=== PATIENT | male | born 1985 | race Caucasian/White ===

== ENCOUNTER 2018-01-09 08:43 | Emergency (ER) | payer OTHER, BC ==
--- NOTE | 2018-01-09 09:45 | ER Document Report ---
ED GI Bleed / Rectal Pain - General Mode of Arrival: Ambulatory Information source: Patient TRAVEL OUTSIDE OF THE U.S. IN LAST 30 DAYS: No - General Chief Complaint: Rectal Pain Stated Complaint: RECTAL PAIN Time Seen by Provider: 01/09/18 09:25 Notes: Patient is a 33 year old male with IBS presents to the emergency department complaining of rectal pain onset yesterday morning around 0400. Patient states the pain is exacerbated with movement, coughing or bowel movements. He reports going to [facility] yesterday and being discharged with a diagnosis of constipation and directed to stop taking Imodium and to take MiraLax after having a rectal exam and xrays performed. Patient states he took MiraLAX yesterday and had several bowel movements which did not change his pain. Patient denies rectal bleeding or any foreign objects in the rectum. Patient states he takes Imodium twice daily for IBS. (RAHEL REINA) - Related Data Allergies/Adverse Reactions: No Known Allergies Allergy (Verified 01/09/18 08:44) Past Medical History - General Information source: Patient - Social History Smoking Status: Current Every Day Smoker Cigarette use (# per day): Yes - 1 PPD Chew tobacco use (# tins/day): No Frequency of alcohol use: Social Drug Abuse: None Family History: Reviewed & Not Pertinent Patient has suicidal ideation: No Patient has homicidal ideation: No Past Surgical History: Reports: Hx Orthopedic Surgery - Immunizations Hx Diphtheria, Pertussis, Tetanus Vaccination: Yes Review of Systems - Review of Systems Constitutional: No symptoms reported EENT: No symptoms reported Cardiovascular: No symptoms reported Respiratory: No symptoms reported Gastrointestinal: See HPI. denies: Rectal bleeding Genitourinary: No symptoms reported Male Genitourinary: No symptoms reported Musculoskeletal: No symptoms reported Skin: No symptoms reported Hematologic/Lymphatic: No symptoms reported Neurological/Psychological: No symptoms reported -: Yes All other systems reviewed and negative Physical Exam - Vital signs Vitals: Temp Pulse Resp BP Pulse Ox 98.1 F 99 16 138/73 H 97 01/09/18 08:50 01/09/18 08:50 01/09/18 08:50 01/09/18 08:50 01/09/18 08:50 - Notes Notes: GENERAL: Alert, interacts well. No acute distress. HEAD: Normocephalic, atraumatic. EYES: Appear normal. Pupils equal, round, and reactive to light. ENT: Moist mucus membranes, tongue midline. NECK: Full range of motion. Supple. Trachea midline. LUNGS: Clear to auscultation bilaterally, no wheezes, rales, or rhonchi. No respiratory distress. HEART: Regular rate and rhythm. No murmurs, gallops, or rubs. ABDOMEN: Soft, non-tender. Non-distended. Normal bowel sounds. EXTREMITIES: Moves all 4 extremities spontaneously. Normal strength. No edema. NEUROLOGICAL: Alert and oriented x3. Normal speech. PSYCH: Normal affect, normal mood. SKIN: Warm, dry, normal turgor. No rashes or lesions noted. RECTAL: Exquisite tenderness to at the 12 o'clock position in the knee to chest position, nontender in the other 3 quadrants. No external fissures or hemorrhoids. (RAHEL REINA) Course - Re-evaluation Re-evalutation: 01/09/18 09:54 Evaluation shows the patient most likely has an internal anal fissure. He states he is leaving tomorrow to drive to [place] and will be there for approximately 8 days. Patient is also asking for an albuterol inhaler. (LION JIMÉNEZ) - Vital Signs Vital signs: Temp Pulse Resp BP Pulse Ox 98.1 F 99 16 138/73 H 97 01/09/18 08:50 01/09/18 08:50 01/09/18 08:50 01/09/18 08:50 01/09/18 08:50 Discharge - Discharge Clinical Impression: Anal fissure Condition: Stable Disposition: HOME, SELF-CARE Additional Instructions: Anal Fissure: You have a split in the tissues of the anus, called an anal fissure. This may be due to constipation, or chronic anal irritation. The fissure causes pain during bowel movements. It may bleed when you pass stool. Treat the fissure with warm sitz baths three or four times a day. Clean the anal area carefully -- special cleansing pads (Tucks) may be helpful. Sometimes prescription suppositories are helpful in reducing pain and inflammation. A stool softener (such as Metamucil) will make bowel movements less traumatic. Eat a diet high in fiber (fruits, whole grains), and drink plenty of water. See your doctor if there is profuse bleeding, increasing pain, an enlarging mass, or fever -- or if the symptoms do not resolve after treatment. Your history and physical exam suggest you have an internal anal fissure. The treatment for this would be lidocaine ointment 4% for pain relief. You can buy this [id number] now. You will also receive a prescription for nitroglycerin ointment. Apply one inch of the nitroglycerin cream into the painful anal region once every 12 hours until you can get the ointment prescription filled. Apply a small amount of the lidocaine ointment into the painful area every 3-4 hours as needed for pain. Reduce the amount of Imodium you take to where you just have very soft bowel movements. Be sure to drink plenty of fluids. Follow-up with [facility] for recheck and anoscopic exam. Prescriptions: Albuterol Sulfate [Proair HFA] 1 - 2 puff IH Q4 PRN #1 inhaler PRN Reason: Nitroglycerin [Nitro-Bid 2% Ointment 30 gm] 0.[address] Q12 #30 gm Referrals: [facility] [Provider Group] - Follow up in 1 week Scribe Attestation: 01/09/18 10:04 I personally performed the services described in the documentation, reviewed and edited the documentation which was dictated to the scribe in my presence, and it accurately records my words and actions. (LION JIMÉNEZ)
[2018-01-09] MEDS ORDERED: NITROGLYCERIN 2% OINTMENT 1 GM PACKET TP ONE (10:04)
[2018-01-09 10:44] VITALS: BP 131/90
== END 2018-01-09 10:31 | disposition home or self-care (01) ==
LOC: ER 08:43
DX: K60.2 Anal fissure, unspecified (principal); K62.89 Other specified diseases of anus and rectum; F17.210 Nicotine dependence, cigarettes, uncomplicated
CPT/HCPCS: 99283

== ENCOUNTER 2018-05-14 13:33 | Emergency (ER) | payer BC, OTHER ==
[2018-05-14 13:40] VITALS: BP 132/80
[2018-05-14] MEDS ORDERED: LIDOCAINE 1% INJ-PF (10 MG/ML) 30 ML SDV INJ ONE (14:00)
--- NOTE | 2018-05-14 14:02 | ER Document Report ---
ED Medical Screen (RME) - General Chief Complaint: Abscess Stated Complaint: ABSCESS/BUTTOCKS Time Seen by Provider: 05/14/18 14:00 Mode of Arrival: Ambulatory Information source: Patient TRAVEL OUTSIDE OF THE U.S. IN LAST 30 DAYS: No - HPI Patient complains to provider of: abscess- buttocks Onset: Other - pt .with abscess on buttocks which has recently started draining - Related Data Allergies/Adverse Reactions: No Known Allergies Allergy (Verified 05/14/18 13:33) Past Medical History Renal/ Medical History: Denies: Hx Peritoneal Dialysis Past Surgical History: Reports: Hx Orthopedic Surgery - Immunizations Hx Diphtheria, Pertussis, Tetanus Vaccination: Yes Physical Exam - Vital signs Vitals: Temp Pulse Resp BP Pulse Ox 98.5 F 82 16 132/80 H 98 05/14/18 13:36 05/14/18 13:36 05/14/18 13:36 05/14/18 13:36 05/14/18 13:36 Course - Vital Signs Vital signs: Temp Pulse Resp BP Pulse Ox 98.5 F 82 16 132/80 H 98 05/14/18 13:36 05/14/18 13:36 05/14/18 13:36 05/14/18 13:36 05/14/18 13:36
--- NOTE | 2018-05-14 15:00 | ER Document Report ---
ED General - General Chief Complaint: Abscess Stated Complaint: ABSCESS/BUTTOCKS Time Seen by Provider: 05/14/18 14:00 Mode of Arrival: Ambulatory Notes: Patient is a 33-year-old male who presents to the emergency department with a chief complaint of an abscess in his anal area. He states that the past couple days, the abscess was hurting, and today it started draining. He has had this abscess since December. He was seen in the emergency department, and was told he had a fissure. 3 days after the visit to the emergency department, the abscess had opened up and he noticed pus. He has not seen his primary care doctor for this visit. He denies fevers, chills, or any constitutional symptoms at this time. He has a history of IBS. He is not a diabetic. TRAVEL OUTSIDE OF THE U.S. IN LAST 30 DAYS: No - Related Data Allergies/Adverse Reactions: No Known Allergies Allergy (Verified 05/14/18 14:09) Past Medical History - General Information source: Patient - Social History Smoking Status: Current Every Day Smoker Chew tobacco use (# tins/day): No Frequency of alcohol use: Social Drug Abuse: None Family History: Reviewed & Not Pertinent Patient has suicidal ideation: No Patient has homicidal ideation: No Renal/ Medical History: Denies: Hx Peritoneal Dialysis Past Surgical History: Reports: Hx Orthopedic Surgery - Immunizations Hx Diphtheria, Pertussis, Tetanus Vaccination: Yes Review of Systems - Review of Systems Notes: REVIEW OF SYSTEMS: CONSTITUTIONAL : Denies recent illness. Denies recent unintentional weight loss. Denies fever, chills, or sweats. EENT: Denies eye, ear, throat, or mouth pain, discharge, or symptoms. Denies nasal or sinus congestion. CARDIOVASCULAR: Denies chest pain. RESPIRATORY: Denies shortness of breath, cough, congestion, difficulty breathing , or wheezing. GASTROINTESTINAL: Denies nausea, vomiting, and diarrhea. Denies abdominal pain. Denies constipation. GENITOURINARY: Denies difficulty urinating, burning, blood in urine, urgency or frequency. MUSCULOSKELETAL: Denies neck and back pain. Denies joint pain or swelling. SKIN: See HPI HEMATOLOGIC : Denies easy bruising or bleeding. LYMPHATIC: Denies swollen, painful, enlarged glands. NEUROLOGICAL: Denies no numbness or tingling denies weakness. Denies headache. Denies altered mental status. Denies alteration in speech. PSYCHIATRIC: Denies stress, anxiety, alteration in sleep patterns, or depression. All other systems reviewed and negative. Physical Exam - Vital signs Vitals: Temp Pulse Resp BP Pulse Ox 98.5 F 82 16 132/80 H 98 05/14/18 13:36 05/14/18 13:36 05/14/18 13:36 05/14/18 13:36 05/14/18 13:36 - Notes Notes: PHYSICAL EXAMINATION: GENERAL: Appears well, healthy, well-nourished, no acute distress. HEAD: Normocephalic, atraumatic. EYES: PERRL, conjunctiva normal, all extraocular movements intact, sclera nonicteric ENT: Moist mucous membranes. NECK: Supple, no noticeable swelling, redness, rash. Normal range of motion. LUNGS: Equal breath sounds bilaterally and clear to auscultation. No wheezes rales or rhonchi. CARDIOVASCULAR: S1-S2, regular rate, regular rhythm. Radial pulses 2+, normal. ABDOMEN: Normoactive bowel sounds. Soft, nontender, no guarding, no rebound tenderness, and no masses palpated. EXTREMITIES: Normal strength and range of motion, no pitting or edema. No cyanosis. NEUROLOGICAL: Moves all extremities upon command. Strength 5/5 in all extremities. PSYCH: Normal mood, normal affect. SKIN: Warm, dry. No rash, lesions, ulcerations noted. Normal skin turgor. RECTAL: Tenderness upon palpation to left anal area and around 7:00. Purulent drainage to area of pain. Course - Re-evaluation Re-evalutation: 05/14/18 15:02 I have concerns for a perirectal abscess. He actually had about 5 mils of drainage, that I was able to extract during my assessment. No cellulitis noted. I have spoke with Dr. Gagnon in regards to this case. He will come to see the patient. Last time the patient ate was around 9:00 this morning. 05/14/18 15:07 Dr. Gagnon was at bedside to evaluate the patient. He states that the patient did not have much to drain from his abscess. His recommendations are to send him home on antibiotics and return precautions and return to the surgical clinic in 3-4 days. Verbal discharge instructions were given to the patient. He verbalized understanding. He is stable for discharge - Vital Signs Vital signs: Temp Pulse Resp BP Pulse Ox 98.5 F 82 16 132/80 H 98 05/14/18 13:36 05/14/18 13:36 05/14/18 13:36 05/14/18 13:36 05/14/18 13:36 Discharge - Discharge Clinical Impression: Perianal abscess Condition: Stable Disposition: HOME, SELF-CARE Additional Instructions: You were seen for an abscess that drained on its own. Please clean this area with soap and water twice daily. 2-3 times a day have a sitz bath to help with pain in the area. Please see the surgical outpatient clinic in 3-4 days. You have been prescribed antibiotics. Please take them until they are all gone. Please return if you develop fever, vomiting, the pain at the site worsens, you notice spreading redness from the area, or you have any other symptoms that are concerning to you. Prescriptions: Sulfamethoxazole/Trimethoprim [Bactrim Ds Tablet] 1 each PO BID 7 Days #14 tablet Referrals: ZAK DIXON MD [CNOY POTTER] - 05/17/18
[2018-05-14] MEDS ORDERED: HYDROCODONE/ACETAMINOPHEN 5-325 MG (6 TAB/ER DISP) PO PRN (15:21)
--- NOTE | 2018-05-14 16:14 | PDOC CONSULTATION ---
Consultation Consult Date: 05/14/18 Consult reason:: rectal abscess History of Present Illness Admission Date/PCP: 05/14/18 Patient complains of: rectal pains History of Present Illness: MAR BENAVIDES is a 33 year old male c/o rectal pains x 48 hrs. 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 He was seen here in December and told has an anal fissure. Rectal area drained on its own 3 days later but did not go back to ED. No fever/chills Past Surgical History Past Surgical History: Reports: Orthopedic Surgery Social History Smoking Status: Current Every Day Smoker Family History Family History: Reviewed & Not Pertinent Parental Family History Reviewed: Yes Children Family History Reviewed: No Sibling(s) Family History Reviewed.: No Medication/Allergy Home Medications: Sulfamethoxazole/Trimethoprim [Bactrim Ds Tablet] 1 each PO BID 7 Days #14 tablet 05/14/18 Allergies/Adverse Reactions: No Known Allergies Allergy (Verified 05/14/18 14:09) Review of Systems Constitutional: PRESENT: as per HPI Eyes: PRESENT: other - no visual/hearing changes Cardiovascular: PRESENT: other - no chest pains/cough Gastrointestinal: PRESENT: other - rectal pains Genitourinary: PRESENT: other - no dysuria Neurological: PRESENT: other - no seizures Physical Exam Vital Signs: Temp Pulse Resp BP Pulse Ox 98.5 F 82 16 132/80 H 98 05/14/18 13:36 05/14/18 13:36 05/14/18 13:36 05/14/18 13:36 05/14/18 13:36 Intake & Output 05/13/18 05/14/18 05/15/18 06:59 06:59 06:59 Weight 77 kg General appearance: PRESENT: no acute distress Head exam: PRESENT: atraumatic Eye exam: PRESENT: conjunctiva pink Mouth exam: PRESENT: moist Neck exam: PRESENT: full ROM Respiratory exam: PRESENT: clear to auscultation maxime Cardiovascular exam: PRESENT: RRR Pulses: PRESENT: normal radial pulses Vascular exam: PRESENT: normal capillary refill GI/Abdominal exam: PRESENT: soft Rectal exam: PRESENT: other - Good sphincteric tone Has a small nodule at the anorectal area post location Has tenderness on posterior area but no obvious abscess cavity that can be drained at this time. Extremities exam: PRESENT: full ROM Musculoskeletal exam: PRESENT: ambulatory Neurological exam: PRESENT: alert, oriented to person, oriented to place, oriented to time, oriented to situation Psychiatric exam: PRESENT: appropriate affect Skin exam: PRESENT: normal color, warm Assessment & Plan - Time Time Spent: 30 to 50 Minutes - Plan Summary Plan Summary: D/W CLASSIFICATION CASE MANAGER and patient. Likely had an abscess that 's been drained. Give po antibiotics and start Hot Sitz baths. If pains really gets worse and/or develops fever then come back to ED. Otherwise can be followed in the surgical clinic later this week or at the [facility].
== END 2018-05-14 15:28 | disposition home or self-care (01) ==
LOC: ER 13:33
DX: K61.0 Anal abscess (principal); F17.200 Nicotine dependence, unspecified, uncomplicated
CPT/HCPCS: 99284; A6266; J3490

== ENCOUNTER 2018-06-09 09:07 | Day surgery (SDC) | payer BC, OTHER ==
[~2018-06-09 09:07] MED LIST: CEFAZOLIN 1 GM/D5W RTU 1 GM/50 ML RTUPB IV PRN; LACTATED RINGERS 1000 ML IV PRN; LIDOCAINE 0.5% INJ-PF (5 MG/ML) 50 ML SDV SUBCUT PRN
[2018-06-09] MEDS ORDERED: CEFAZOLIN 1 GM/D5W RTU 1 GM/50 ML RTUPB IV ONE (09:19)
[2018-06-09 09:48] LABS: HEMATOCRIT 43.1 % (37.9-51.0); HEMOGLOBIN 14.9 g/dL (13.5-17.0); MEAN CORPUSCULAR HEMOGLOBIN 32.5 pg (27.0-33.4); MEAN CORPUSCULAR HGB CONC 34.6 g/dL (32.0-36.0); MEAN CORPUSCULAR VOLUME 94 fl (80-97); PLATELET COUNT 226 10^3/uL (150-450); RED BLOOD COUNT 4.58 10^6/uL (4.35-5.55); RED CELL DISTRIBUTION WIDTH 13.8 % (11.5-14.0); WHITE BLOOD COUNT 5.4 10^3/uL (4.0-10.5)
[2018-06-09] MEDS ORDERED: DIPHENHYDRAMINE HCL 50 MG/ML VIAL IV PRN (10:11)
[2018-06-09] MEDS ORDERED: MEPERIDINE HCL/PF INJ 25 MG/1 ML DISP.SYRIN IV PRN (10:11)
[2018-06-09] MEDS ORDERED: OXYCODONE-ACETAMINOPHEN 5-325 MG TABLET PO PRN ×3 (10:11→11:19)
[2018-06-09] MEDS ORDERED: FENTANYL CITRATE INJ/PF 100 MCG/2 ML AMPUL IV PRN ×3 (10:11)
[2018-06-09] MEDS ORDERED: MORPHINE SULFATE 10 MG/ML INJ IV PRN (10:11)
[2018-06-09] MEDS ORDERED: PROMETHAZINE HCL INJ 25 MG/1 ML VIAL IV PRN ×2 (10:11)
[2018-06-09 10:13] LABS: ANION GAP 9 (5-19); BLOOD UREA NITROGEN 8 mg/dL (7-20); CALCIUM 9.6 mg/dL (8.4-10.2); CARBON DIOXIDE 26 mmol/L (22-30); CHLORIDE 109 mmol/L (98-107); GLUCOSE 91 mg/dL (75-110); POTASSIUM 4.7 mmol/L (3.6-5.0); SODIUM 144.1 mmol/L (137-145)
[2018-06-09] MEDS ORDERED: PROPOFOL INJ 200 MG/20 ML VIAL IV ONE (10:17)
[2018-06-09] MEDS ORDERED: BUPIVACAINE HCL 0.5%-EPI 1:200000 INJ/PF 30 ML VIAL ONE (10:19)
[2018-06-09] MEDS ORDERED: LIDOCAINE 2% JELLY 30 ML TUBE ONE (10:19)
[2018-06-09] MEDS ORDERED: PROMETHAZINE HCL INJ 25 MG/1 ML VIAL ONE (10:19)
[2018-06-09] MEDS ORDERED: LIDOCAINE 2% INJ-PF (20 MG/ML) 10 ML AMPUL ONE (10:19)
[2018-06-09] MEDS ORDERED: FENTANYL CITRATE INJ/PF 100 MCG/2 ML AMPUL ONE (10:19)
[2018-06-09] MEDS ORDERED: DEXAMETHASONE SOD PHOSPHATE INJ 4 MG/1 ML VIAL ONE ×2 (10:20→10:26)
[2018-06-09] MEDS ORDERED: ONDANSETRON HCL INJ/PF 4 MG/2 ML SDV ONE (10:20)
[2018-06-09] MEDS ORDERED: MIDAZOLAM 2 MG/2 ML INJ ONE (10:20)
[2018-06-09] MEDS ORDERED: ACETAMINOPHEN 1,000 MG/100 ML RTUPB IV ONE (10:20)
[2018-06-09] MEDS ORDERED: METHYLENE BLUE 50 MG/10 ML AMPULE ONE (10:51)
--- NOTE | 2018-06-09 11:22 | Brief Operative Note ---
BRIEF OPERATIVE REPORT DATE OF SURGERY: 06/09/18 TIME OF SURGERY: 11:00 PREOPERATIVE DIAGNOSIS: perirectal fistula POSTOPERATIVE DIAGNOSIS: perirectal fistula SURGEON: YEFRI PAUL 1ST CROTCH PIECE BASTER: GRAYSON ANTONIO FINDINGS: extrsphincteric fistual COMPLICATIONS: none ESTIMATED BLOOD LOSS: 3 TISSUE REMOVED OR ALTERED: none TECHNICAL PROCEDURE: see dictation
[2018-06-09] MEDS: FENTANYL CITRATE INJ/PF 100 MCG/2 ML AMPUL ONE ×2 (11:42→11:50)
[2018-06-09] MEDS ORDERED: OXYCODONE-ACETAMINOPHEN 5-325 MG TABLET ONE (12:41)
--- NOTE | 2018-06-09 12:42 | EKG REPORT ---
SEVERITY:- OTHERWISE NORMAL ECG - SINUS RHYTHM LEFT AXIS DEVIATION : Confirmed by: Jaret Rock MD 09-Jun-2018 12:42:06
[2018-06-09] MEDS ORDERED: KETOROLAC TROMETHAMINE 60 MG/2 ML SDV ONE (12:52)
[2018-06-09 14:28] VITALS: BP 126/69
--- NOTE | 2018-06-10 07:42 | OPERATIVE REPORT E ---
Operative Report NAME: MAR BENAVIDES : 1985 AGE: 33Y DATE OF SURGERY: 06/09/2018 ROOM: PREOPERATIVE DIAGNOSIS: Perirectal fistula. POSTOPERATIVE DIAGNOSIS: Perirectal fistula. OPERATIVE PROCEDURE: Exam under anesthesia and fistulotomy with Seton placement. SURGEON: YEFRI PAUL M.D. 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 PROCEDURE: The patient was brought to the operating room, awake, alert, in stable condition, placed on the operating table in supine position, induced under general anesthesia and intubated. He was then placed in a high lithotomy position. The perineum was prepped and draped in the usual sterile fashion for the procedure. The fistula was evident at the 7 o'clock position on the rectum. Using a fine probe, we gained access to the fistula and we noted some pus coming from it. I then infiltrated methylene blue dye saline. Once this was completed, I used the anoscope and examined the rectum and it appeared to be normal without any evidence of hemorrhoids or any other mucosal lesions. However, there was a punctate midline spot directly into it following Goodsall's rule. It was a direct course right into the posterior midline portion of the rectum. We placed the probe into the rectum and began our division of the mucosal tissue over the fistula, however, noted the external sphincter was quite evident and therefore I elected not to transect the external sphincter. I therefore used a vessel loop and passed it around the sphincter and tied it to itself as a Seton. This was left in place and will be tied serially on return visits to the clinic. Hemostasis was obtained with Bovie cautery, and after good hemostasis, a sterile dressing was applied, which completed the procedure. Estimated blood loss was less than 3 mL. Sponge and needle counts were correct x2. The patient was transferred back to recovery in stable condition. DICTATING PHYSICIAN: YEFRI PAUL M.D. [id number] PHY#: [id number] ID: [id number] JOB#: [id number] ACCT: [id number] cc:YEFRI PAUL M.D. >
== END 2018-06-09 14:00 | disposition home or self-care (01) ==
LOC: OROUT 09:07
PROVIDERS: ATTEND Surgery
DX: K60.5 Anorectal fistula (principal); K58.9 Irritable bowel syndrome, unspecified; F17.210 Nicotine dependence, cigarettes, uncomplicated
CPT/HCPCS: 36415; 85027; 80048; 93005; 93010; 46020; J2250; J3490 ×2; J0690; J1100; J1885; J3010; J2550; J2405; J2704; J0131; Q9968; 902

== ENCOUNTER 2018-08-08 09:14 | Day surgery (SDC) | payer OTHER, BC ==
--- NOTE | 2018-08-08 10:05 | ER Document Report ---
ED General - General Chief Complaint: Abscess Stated Complaint: POSSIBLE ABSCESS Time Seen by Provider: 08/08/18 09:31 TRAVEL OUTSIDE OF THE [place]. IN LAST 30 DAYS: No - HPI Patient complains to provider of: Rectal abscess Notes: Patient with a history of IBD with recent perirectal fistula surgery performed in May by Dr. Gonzalez coming in for possible abscess states pain in the rectal area ongoing for the last 48-72 hours. Denies any fevers chills nausea vomiting diarrhea states pain with a bowel movement. Patient otherwise is resting comfortably upon my evaluation. No other complaints - Related Data Allergies/Adverse Reactions: No Known Allergies Allergy (Verified 06/09/18 09:17) Past Medical History - Social History Smoking Status: Current Every Day Smoker Family History: Reviewed & Not Pertinent Patient has suicidal ideation: No Patient has homicidal ideation: No - Past Medical History Cardiac Medical History: Denies: Hx Coronary Artery Disease, Hx Heart Attack, Hx Hypertension Pulmonary Medical History: Reports: Hx Pneumonia Denies: Hx Asthma, Hx Bronchitis, Hx COPD Neurological Medical History: Denies: Hx Cerebrovascular Accident, Hx Seizures Renal/ Medical History: Denies: Hx Peritoneal Dialysis Musculoskeletal Medical History: Denies Hx Arthritis Past Surgical History: Reports: Hx Orthopedic Surgery - Immunizations Hx Diphtheria, Pertussis, Tetanus Vaccination: Yes Review of Systems - Review of Systems Constitutional: No symptoms reported EENT: No symptoms reported Cardiovascular: No symptoms reported Respiratory: No symptoms reported Gastrointestinal: No symptoms reported Genitourinary: No symptoms reported Male Genitourinary: No symptoms reported Musculoskeletal: No symptoms reported Skin: Other - Rectal abscess Hematologic/Lymphatic: No symptoms reported Neurological/Psychological: No symptoms reported Physical Exam - Vital signs Vitals: Temp Pulse Resp BP Pulse Ox 97.8 F 76 14 141/75 H 96 08/08/18 09:18 08/08/18 09:18 08/08/18 09:18 08/08/18 09:18 08/08/18 09:18 Interpretation: Normal - General General appearance: Appears well, Alert - HEENT Head: Normocephalic, Atraumatic Eyes: Normal Pupils: PERRL - Respiratory Respiratory status: No respiratory distress Chest status: Nontender Breath sounds: Normal Chest palpation: Normal - Cardiovascular Rhythm: Regular Heart sounds: Normal auscultation Murmur: No - Abdominal Inspection: Normal Distension: No distension Bowel sounds: Normal Tenderness: Nontender Organomegaly: No organomegaly - Rectal Notes: Examination of the rectum reveals swelling tenderness approximately 7:00 to 8 o'clock position rated bedside ultrasound showing fluid collection - Back Back: Normal, Nontender - Extremities General upper extremity: Normal inspection, Nontender, Normal color, Normal ROM, Normal temperature General lower extremity: Normal inspection, Nontender, Normal color, Normal ROM, Normal temperature, Normal weight bearing. No: Wanda's sign - Neurological Neuro grossly intact: Yes Cognition: Normal Orientation: AAOx4 [place] Coma Scale Eye Opening: Spontaneous [place] Coma Scale Verbal: Oriented [place] Coma Scale Motor: Obeys Commands [place] Coma Scale Total: 15 Speech: Normal Motor strength normal: LUE, RUE, LLE, RLE Sensory: Normal - Psychological Associated symptoms: Normal affect, Normal mood - Skin Skin Temperature: Warm Skin Moisture: Dry Skin Color: Normal Course - Re-evaluation Re-evalutation: 08/08/18 10:04 Patient with history of IBD chronic fissure formation now looks to have a possible abscess because the recent instrumentation surgery performed by her team will consult with them for further evaluation and management 08/08/18 10:25 Dr. Horowitz requesting antibiotics and IV fluids. Patient will remain n.p.o. Patient states last meal was at 730. Patient will be moved to room 7 currently waiting for surgical evaluation. Patient has been updated. Unfortunate this time Dr. Horowitz is in surgery otherwise patient is stable 08/08/18 10:53 Surgery will take patient to the OR - Vital Signs Vital signs: Temp Pulse Resp BP Pulse Ox 97.6 F 62 16 122/75 98 08/08/18 16:25 08/08/18 16:25 08/08/18 16:25 08/08/18 16:25 08/08/18 16:25 - Laboratory Result Diagrams: 08/08/18 10:37 08/08/18 10:37 Laboratory results interpreted by me: 08/08/18 10:37 RDW 14.4 H Discharge - Discharge Clinical Impression: Perirectal fistula, Perirectal abscess, History of inflammatory bowel disease Condition: Good Disposition: ADMITTED OBSERVATION Admitting Provider: Surgicalist - Carlos Manuel Unit Admitted: OR
[2018-08-08] MEDS ORDERED: RINGERS SOLUTION,LACTATED 1,000 ML IV ONE ×2 (10:15)
[2018-08-08] MEDS ORDERED: AMPICILLIN SOD/SULBACTAM 3 GM VIAL IV ONE (10:15)
[2018-08-08 10:58] LABS: ABSOLUTE BASOPHILS # (AUTO) 0.1 10^3/uL (0.0-0.2); ABSOLUTE EOSINOPHILS # (AUTO) 0.1 10^3/uL (0.0-0.6); ABSOLUTE MONOCYTES (AUTO) 0.3 10^3/uL (0.1-1.4); ABSOLUTE NEUT (AUTO) 2.3 10^3/uL (1.7-8.2); BASOPHILS % (AUTO) 1.5 % (0-2); EOSINOPHILS % (AUTO) 1.8 % (0-6); HEMATOCRIT 42.1 % (37.9-51.0); HEMOGLOBIN 14.7 g/dL (13.5-17.0); LYMPHOCYTES % (AUTO) 41.3 % (13-45); MEAN CORPUSCULAR HEMOGLOBIN 32.5 pg (27.0-33.4); MEAN CORPUSCULAR VOLUME 93 fl (80-97); MONOCYTES % (AUTO) 6.7 % (3-13); PLATELET COUNT 233 10^3/uL (150-450); RED BLOOD COUNT 4.53 10^6/uL (4.35-5.55); RED CELL DISTRIBUTION WIDTH 14.4 % (11.5-14.0); SEGMENTED NEUTROPHILS % (AUTO) 48.7 % (42-78); TOTAL CELLS COUNTED % (AUTO) 100 %; WHITE BLOOD COUNT 4.7 10^3/uL (4.0-10.5)
[2018-08-08] MEDS ORDERED: RINGERS SOLUTION,LACTATED 1,000 ML IV PRN (10:59)
--- NOTE | 2018-08-08 11:07 | PDOC H&P ---
History of Present Illness Patient complains of: Anal pain History of Present Illness: MAR BENAVIDES is a 33 year old male Seen in the emergency department, after arriving via ground rescue complaining of persisting anal pain. Patient is a month status post examination under anesthesia, drainage of perianal abscess, fistulotomy, with seton placement by Dr. Mohsen Gonzalez. The seton fell out at the 2-week point and the patient did well until about a week and a half ago he started having drainage, pain, and a lump on the opposite side of his anal canal. He now seeks medical care in the emergency department. He was evaluated by the emergency room physician, found to have a perianal abscess, and surgery was consulted. Patient was advised admission, and definitive management. Patient's past medical history significant for irritable bowel syndrome, history of chronic diarrhea status post colonoscopy by Dr. Erickson 2014; patient on Imodium and Metamucil chronically. Past Medical History Past Medical History: Irritable bowel syndrome, chronic pain, chronic diarrhea Cardiac Medical History: Denies: Coronary Artery Disease, Myocardial Infarction, Hypertension Pulmonary Medical History: Reports: Pneumonia Denies: Asthma, Bronchitis, Chronic Obstructive Pulmonary Disease (COPD) Neurological Medical History: Denies: Seizures Musculoskeltal Medical History: Denies: Arthritis Hematology: Denies: Anemia Past Surgical History Past Surgical History: Multiple operations right ankle status post trauma; right tendon repair Past Surgical History: Reports: Orthopedic Surgery Social 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 Smoking Status: Current Every Day Smoker Frequency of Alcohol Use: Rare Hx Prescription Drug Abuse: No Family History Family History: Reviewed & Not Pertinent Parental Family History Reviewed: Yes Children Family History Reviewed: Yes Sibling(s) Family History Reviewed.: Yes Medication/Allergy Home Medications: Acetaminophen [Tylenol] 325 mg PO PRN PRN 06/07/18 Loperamide HCl [Imodium A-D] 4 mg PO BID 06/07/18 Allergies/Adverse Reactions: No Known Allergies Allergy (Verified 06/09/18 09:17) Review of Systems Constitutional: PRESENT: other Eyes: ABSENT: visual disturbances Ears: ABSENT: hearing changes Cardiovascular: ABSENT: chest pain, dyspnea on exertion, edema, orthropnea, palpitations Respiratory: ABSENT: cough, hemoptysis Gastrointestinal: PRESENT: as per HPI Genitourinary: PRESENT: other - Denies Musculoskeletal: ABSENT: joint swelling Integumentary: ABSENT: rash, wounds Neurological: ABSENT: abnormal gait, abnormal speech, confusion, dizziness, focal weakness, syncope Endocrine: ABSENT: cold intolerance, heat intolerance, polydipsia, polyuria Hematologic/Lymphatic: ABSENT: easy bleeding, easy bruising Physical Exam Vital Signs: Temp Pulse Resp BP Pulse Ox 97.8 F 76 14 141/75 H 96 08/08/18 09:18 08/08/18 09:18 08/08/18 09:18 08/08/18 09:18 08/08/18 09:18 Intake & Output 08/07/18 08/08/18 08/09/18 06:59 06:59 06:59 Weight 80.5 kg General appearance: PRESENT: no acute distress Head exam: PRESENT: normocephalic Eye exam: PRESENT: EOMI Mouth exam: PRESENT: dry mucosa Neck exam: PRESENT: full ROM Respiratory exam: PRESENT: clear to auscultation maxime Cardiovascular exam: PRESENT: RRR Pulses: PRESENT: normal carotid pulses, normal radial pulses, normal femoral pulses, normal dorsalis pedis pul GI/Abdominal exam: PRESENT: other - Soft nontender no peritoneal signs no rigidity Rectal exam: PRESENT: other - No cellulitis, erythema or obvious mass however palpable thick cordlike structure oriented radially in the right posterior lateral side; evidence of scar left posterior lateral side. Neurological exam: PRESENT: altered, awake, oriented to person, oriented to place Psychiatric exam: PRESENT: appropriate affect Skin exam: PRESENT: cyanosis, dry Assessment & Plan - Diagnosis (1) Perianal abscess Is this a current diagnosis for this admission?: Yes Plan: Impression: Metachronous perianal abscess in young white male with previous perianal abscess, fistulotomy and seton placement 2 months ago separate site. Recommendations: 1. Admit, n.p.o., IV antibiotics; take to the operating room for exam under anesthesia, drainage procedure, myotomy, fistulectomy, possible seton placement. The mechanics of the operation, as well as the risk benefits and alternatives were discussed with the patient including bleeding, infection, pain, need for additional surgery. He expresses understanding and agrees to proceed. (2) Smoker Is this a current diagnosis for this admission?: Yes (3) IBS (irritable bowel syndrome) Qualifiers: Irritable bowel syndrome type: with diarrhea Qualified Code(s): K58.0 - Irritable bowel syndrome with diarrhea Is this a current diagnosis for this admission?: Yes (4) Chronic diarrhea Is this a current diagnosis for this admission?: Yes - Time Time Spent: 30 to 50 Minutes Critical Time spent with patient: Less than 15 minutes Medications reviewed and adjusted accordingly: Yes Anticipated discharge: Home - Inpatient Certification Based on my medical assessment, after consideration of the patient's comorbidities, presenting symptoms, or acuity I expect that the services needed warrant INPATIENT care.: Yes I certify that my determination is in accordance with my understanding of Medicare's requirements for reasonable and necessary INPATIENT services [42 CFR 412.3e].: Yes Medical Necessity: Need For IV Fluids, Need for Pain Control, Need for IV Antibiotics, Need for Surgery
[2018-08-08 11:23] LABS: ANION GAP 9 (5-19); BLOOD UREA NITROGEN 13 mg/dL (7-20); CALCIUM 9.7 mg/dL (8.4-10.2); CARBON DIOXIDE 28 mmol/L (22-30); CHLORIDE 105 mmol/L (98-107); GLUCOSE 91 mg/dL (75-110); POTASSIUM 4.3 mmol/L (3.6-5.0); SODIUM 142.4 mmol/L (137-145)
[2018-08-08] MEDS ORDERED: SUCCINYLCHOLINE CHLORIDE INJ 200 MG/10 ML VIAL ONE (11:40)
[2018-08-08] MEDS ORDERED: DEXAMETHASONE SOD PHOSPHATE INJ 4 MG/1 ML VIAL ONE (11:40)
[2018-08-08] MEDS ORDERED: KETOROLAC TROMETHAMINE 60 MG/2 ML SDV ONE (11:40)
[2018-08-08] MEDS ORDERED: MIDAZOLAM 2 MG/2 ML INJ ONE (12:50)
[2018-08-08] MEDS ORDERED: ACETAMINOPHEN 1,000 MG/100 ML RTUPB IV ONE (12:50)
[2018-08-08] MEDS ORDERED: PROPOFOL INJ 200 MG/20 ML VIAL IV ONE (12:50)
[2018-08-08] MEDS ORDERED: FENTANYL CITRATE INJ/PF 100 MCG/2 ML AMPUL ONE (12:50)
[2018-08-08] MEDS ORDERED: ONDANSETRON HCL INJ/PF 4 MG/2 ML SDV ONE (12:50)
[2018-08-08] MEDS ORDERED: EPHEDRINE SULFATE INJ 50 MG/1 ML AMPULE ONE (12:50)
[2018-08-08] MEDS ORDERED: LIDOCAINE 2% JELLY 30 ML TUBE ONE (13:10)
[2018-08-08] MEDS ORDERED: LIDOCAINE 1%/EPINEPHRINE INJ 20 ML VIAL ONE (13:10)
[2018-08-08] MEDS ORDERED: PROMETHAZINE HCL INJ 25 MG/1 ML VIAL ONE (14:19)
[2018-08-08] MEDS ORDERED: HYDROMORPHONE HCL INJ/PF 2 MG/ML AMPULE ONE (14:19)
[2018-08-08] MEDS ORDERED: DIPHENHYDRAMINE HCL 50 MG/ML VIAL IV PRN (14:40)
[2018-08-08] MEDS ORDERED: FENTANYL CITRATE INJ/PF 100 MCG/2 ML AMPUL IV PRN ×3 (14:40)
[2018-08-08] MEDS ORDERED: MEPERIDINE HCL/PF INJ 25 MG/1 ML DISP.SYRIN IV PRN (14:40)
[2018-08-08] MEDS ORDERED: MORPHINE SULFATE 10 MG/ML INJ IV PRN (14:40)
[2018-08-08] MEDS ORDERED: PROMETHAZINE HCL INJ 25 MG/1 ML VIAL IV PRN ×2 (14:40)
--- NOTE | 2018-08-08 15:04 | Operative Report ---
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 Examination under anesthesia of the anal rectal canal. 2. Bullet anoscopy, drainage of right lateral perianal abscess and packing of cavity. 3. Rigid sigmoidoscopy to 12 cm SURGEON: LULU LAM ANESTHESIA: GA TISSUE REMOVED OR ALTERED: Pus, fat right perianal space COMPLICATIONS: None ESTIMATED BLOOD LOSS: Scant INTRAOPERATIVE FINDINGS: See below PROCEDURE: The patient was taken for the preop holding area the main operating room where general anesthesia was induced. He was rolled in the prone jackknife position buttocks spread, clipped of hair taped widely. Surgical plan surgical timeout were conducted. The perianal tissue and perirectal tissue was anesthetized with quarter percent Marcaine. The anal canal was dilated up to accept to adult fingers. Evidence of previous left posterior lateral fistulotomy with healing of crepitus appreciated. The wound was completely epithelialized. Of note the external sphincter was attenuated and thin. To the patient's right lateral position there was a thickened area of the perianal skin. A knife blade was poked into the point of maximum induration which was actually quite small. Approximately 6 cc of pus was evacuated. I then used a hemostat to stretch the cavity radially which extended down to but did not include the external anal sphincter. I then irrigated probed and manipulated the cavity which dissected deep in the perirectal space. It extended approximately 10-12 cm, but no further pus was encountered. Fatty tissue was very loose. Repeat bullet anoscopy failed to demonstrate an internal opening in the patient's right lateral position. I did place a few probes through the abscess cavity, but could not get them to traverse the anal rectal wall. I now performed a rigid sigmoidoscopy with an adult rigid sigmoidoscope up to approximately 12 cm from the anal verge. This is very difficult given the patient's prone jackknife position, nonetheless no obvious anal rectal pathology identified. The scope was withdrawn. At this point I felt the immediate needs of the patient were met, that is the drainage of the acute right lateral abscess. The abscess cavity was packed open with a small piece iodoform gauze. Patient tolerated procedure well, extubated, and taken recovery in stable condition.
--- NOTE | 2018-08-08 16:22 | Discharge Summary ---
Discharge Summary (SDC) - Discharge Final Diagnosis: Perianal abscess status post drainage Date of Surgery: 08/08/18 Discharge Date: 08/08/18 Condition: Good Forms: ASU Anesthesia D/C Instruction, Discharge POC-Surgical Service Treatment or Instructions: Return to physician as directed. 1. Activity as able; may return to work in 24-48 hours 2. Have patient remove thin strip of iodoform packing tomorrow morning; no indication for further packing 3. Start sitz bath tonight. 4. Follow-up with [place] [facility] in 1-2 weeks. Referrals: LULU LAM MD [ACTIVE STAFF] -
[2018-08-08 16:27] VITALS: BP 122/75
== END 2018-08-08 16:40 | disposition home or self-care (01) ==
LOC: ER 09:14 → ASU 09:15 → UNDOADMOB 11:43 → EH 11:43 → UNDODISOB 16:40 → ASU 16:40
PROVIDERS: ATTEND Surgery
DX: K61.0 Anal abscess (principal); K58.0 Irritable bowel syndrome with diarrhea; G89.29 Other chronic pain; F17.210 Nicotine dependence, cigarettes, uncomplicated; Z79.899 Other long term (current) drug therapy
CPT/HCPCS: 99284; 96365; 36415; 87040; 87070; 87205; 85025; 87075; 87077; 80048; 46270; 45330; A6266; J2250; J1100; J1885; J3010; J0295; J3490; J2550; J0330; J2405; J7120; J2704; J0131; 87186; J1170

== ENCOUNTER 2019-10-26 11:24 | Emergency (ER) | payer OTHER, BC ==
[2019-10-26 11:49] VITALS: BP 169/71
--- NOTE | 2019-10-26 12:31 | ER Document Report ---
ED Medical Screen (RME) - General Chief Complaint: Rectal Pain Stated Complaint: RECTAL PAIN Time Seen by Provider: 10/26/19 12:28 Mode of Arrival: Ambulatory Information source: Patient Notes: 34-year-old male presented to ED for a another fistula. He states he has a hard knot next to his rectum. He states he has been seen twice already and had fistulous 1 on the left one on the right this 1 is on the right again. He states he has had gone to surgery each time. He is alert oriented respirations regular and unlabored speaking in full sentences. I have greeted and performed a rapid initial assessment of this patient. A comprehensive ED assessment and evaluation of the patient, analysis of test results and completion of medical decision making process will be conducted by an additional ED providers. TRAVEL OUTSIDE OF THE [place] IN LAST 30 DAYS: No - Related Data Allergies/Adverse Reactions: No Known Allergies Allergy (Verified 06/09/18 09:17) Past Medical History - Past Medical History Cardiac Medical History: Denies: Hx Coronary Artery Disease, Hx Heart Attack, Hx Hypertension Pulmonary Medical History: Reports: Hx Pneumonia Denies: Hx Asthma, Hx Bronchitis, Hx COPD Neurological Medical History: Denies: Hx Cerebrovascular Accident, Hx Seizures Renal/ Medical History: Denies: Hx Peritoneal Dialysis Musculoskeltal Medical History: Denies Hx Arthritis Past Surgical History: Reports: Hx Orthopedic Surgery - Immunizations Hx Diphtheria, Pertussis, Tetanus Vaccination: Yes Physical Exam - Vital signs Vitals: Temp Pulse Resp BP Pulse Ox 98.2 F 67 18 169/71 H 95 10/26/19 11:47 10/26/19 11:47 10/26/19 11:47 10/26/19 11:47 10/26/19 11:47 Course - Vital Signs Vital signs: Temp Pulse Resp BP Pulse Ox 98.2 F 67 18 169/71 H 95 10/26/19 11:47 10/26/19 11:47 10/26/19 11:47 10/26/19 11:47 10/26/19 11:47
[2019-10-26 13:32] LABS: ABSOLUTE BASOPHILS # (AUTO) 0.1 10^3/uL (0.0-0.2); ABSOLUTE EOSINOPHILS # (AUTO) 0.1 10^3/uL (0.0-0.6); ABSOLUTE MONOCYTES (AUTO) 0.4 10^3/uL (0.1-1.4); ABSOLUTE NEUT (AUTO) 2.8 10^3/uL (1.7-8.2); BASOPHILS % (AUTO) 1.5 % (0-2); EOSINOPHILS % (AUTO) 1.6 % (0-6); HEMATOCRIT 40.6 % (37.9-51.0); LYMPHOCYTES % (AUTO) 37.5 % (13-45); MEAN CORPUSCULAR HEMOGLOBIN 32.3 pg (27.0-33.4); MEAN CORPUSCULAR HGB CONC 34.4 g/dL (32.0-36.0); MEAN CORPUSCULAR VOLUME 94 fl (80-97); MONOCYTES % (AUTO) 6.7 % (3-13); PLATELET COUNT 201 10^3/uL (150-450); RED BLOOD COUNT 4.32 10^6/uL (4.35-5.55); RED CELL DISTRIBUTION WIDTH 13.7 % (11.5-14.0); SEGMENTED NEUTROPHILS % (AUTO) 52.7 % (42-78); TOTAL CELLS COUNTED % (AUTO) 100 %; WHITE BLOOD COUNT 5.3 10^3/uL (4.0-10.5)
[2019-10-26 13:35] LABS: APPEARANCE,URINE CLEAR; BILIRUBIN,URINE NEGATIVE (NEGATIVE); COLOR,URINE YELLOW; GLUCOSE, URINE NEGATIVE (NEGATIVE); KETONES,URINE NEGATIVE (NEGATIVE); LEUKOCYTE ESTERASE,URINE NEGATIVE (NEGATIVE); NITRITE,URINE NEGATIVE (NEGATIVE); PROTEIN,URINE NEGATIVE (NEGATIVE); URINE SPECIFIC GRAVITY 1.015; UROBILINOGEN,URINE NEGATIVE mg/dL (<2.0)
[2019-10-26 14:12] LABS: ALBUMIN 4.6 g/dL (3.5-5.0); ALKALINE PHOSPHATASE 52 U/L (38-126); ANION GAP 9 (5-19); ASPARTATE AMINO TRANSFERASE 41 U/L (17-59); BILIRUBIN,TOTAL 0.6 mg/dL (0.2-1.3); BLOOD UREA NITROGEN 11 mg/dL (7-20); CALCIUM 9.4 mg/dL (8.4-10.2); CARBON DIOXIDE 28 mmol/L (22-30); CHLORIDE 103 mmol/L (98-107); GLUCOSE 84 mg/dL (75-110); POTASSIUM 4.4 mmol/L (3.6-5.0); TOTAL PROTEIN 7.5 g/dL (6.3-8.2)
--- NOTE | 2019-10-26 17:27 | ER Document Report ---
ED General - General Chief Complaint: Rectal Pain Stated Complaint: RECTAL PAIN Time Seen by Provider: 10/26/19 12:28 Mode of Arrival: Ambulatory TRAVEL OUTSIDE OF THE [place] IN LAST 30 DAYS: No - HPI Notes: Patient is a 34-year-old male who presents to the emergency department for evaluation of a possible perianal abscess. He has a history of these in the past, one with a fistula. He has had a large drainage as well as fistulotomy. He states over the last 2 weeks he is felt one starting to develop. It has gotten worse over the last 2 days. He had scheduled follow-up in the surgical clinic next Wednesday, but it got worse, supersensitive to the ER for further evaluation. No fever chills. No nausea or vomiting. He has had no asif purulence from the area. - Related Data Allergies/Adverse Reactions: No Known Allergies Allergy (Verified 10/26/19 14:55) Past Medical History - General Information source: Patient - Social History Smoking Status: Former Smoker Frequency of alcohol use: Occasional Drug Abuse: None Family History: Reviewed & Not Pertinent Patient has homicidal ideation: No - Past Medical History Cardiac Medical History: Denies: Hx Coronary Artery Disease, Hx Heart Attack, Hx Hypertension Pulmonary Medical History: Reports: Hx Pneumonia Denies: Hx Asthma, Hx Bronchitis, Hx COPD Neurological Medical History: Denies: Hx Cerebrovascular Accident, Hx Seizures Renal/ Medical History: Denies: Hx Peritoneal Dialysis GI Medical History: Reports: Hx Irritable Bowel Musculoskeletal Medical History: Denies Hx Arthritis Past Surgical History: Reports: Hx Orthopedic Surgery, Other - Perianal abscess drainage with fistulotomy x2 - Immunizations Hx Diphtheria, Pertussis, Tetanus Vaccination: Yes Review of Systems - Review of Systems Gastrointestinal: Nausea -: Yes All other systems reviewed and negative Physical Exam - Vital signs Vitals: Temp Pulse Resp BP Pulse Ox 98.2 F 67 18 169/71 H 95 10/26/19 11:47 10/26/19 11:47 10/26/19 11:47 10/26/19 11:47 10/26/19 11:47 - Notes Notes: Vital signs reviewed, please refer to chart. Head is normocephalic, atraumatic. Pupils equal round, reactive to light. Neck is supple without meningismus. Hea rt is regular rate and rhythm. Lungs are clear to auscultation bilaterally. Abdomen is soft, nontender, normoactive bowel sounds throughout. Extremities without cyanosis, clubbing. Posterior calves are nontender. Peripheral pulses are equal. Skin is warm and dry. Rectal exam is performed with MAXINE Garay, present in the room. Patient has a small, 2 mm pustule with a mild amount of surrounding induration on the left buttock, approximately at the 10 o'clock position. Internal rectal exam is performed. He has good rectal tone, I cannot appreciate any fluctuance in that area. Course - Re-evaluation Re-evalutation: 10/26/19 17:27 Patient presents to the emergency department for evaluation. Laboratory investigations as ordered through triage. I spoke with Dr. Gonzalez, on-call surgeon. He states that in light of minimal findings on exam, but patient's report that his feelings are similar to significant abscess in the past, pelvis CT would be appropriate. This was ordered, patient is stable, we will continue to monitor. 10/26/19 18:23 I was awaiting patient's IV placement for IV contrasted scan of the pelvis. Nursing wanted to place the IV. At that point he asked how long it would take. He was told that it would be at least 1 further hour before study could be done and interpreted. At this point the patient stated he did not wish to wait anymore. He would not wait for discharge papers, did not wait for signing any AMA paperwork and left the department. - Vital Signs Vital signs: Temp Pulse Resp BP Pulse Ox 98.2 F 67 18 169/71 H 95 10/26/19 12:28 10/26/19 11:47 10/26/19 11:47 10/26/19 11:47 10/26/19 11:47 - Laboratory Result Diagrams: 10/26/19 12:57 10/26/19 12:57 Laboratory results interpreted by me: 10/26/19 10/26/19 12:57 12:57 RBC 4.32 L ALT 69 H Discharge - Discharge Clinical Impression: Perirectal abscess Disposition: AGAINST MEDICAL ADVICE
== END 2019-10-26 18:29 | disposition left against medical advice (07) ==
LOC: ER 11:24
DX: K61.1 Rectal abscess (principal); Z87.891 Personal history of nicotine dependence; Z53.29 Procedure and treatment not carried out because of patient's decision for other reasons
CPT/HCPCS: 36415; 80053; 81001; 85025; 99281

== ENCOUNTER 2019-12-22 10:51 | Day surgery (SDC) | payer BC, OTHER ==
[~2019-12-22 10:51] MED LIST changes: -CEFAZOLIN 1 GM/D5W RTU 1 GM/50 ML RTUPB IV PRN; +DEXMEDETOMIDINE INJ 80 MCG/20 ML VIAL IV ONE; +FENTANYL CITRATE INJ/PF 100 MCG/2 ML AMPUL ONE; +IBUPROFEN 800 MG in NORMAL SALINE 250 ML IV PRN; +METRONIDAZOLE 500 MG/NS RTU 500 MG/100 ML RTUPB IV PRN; +MIDAZOLAM 2 MG/2 ML INJ ONE; +MORPHINE SULFATE 10 MG/ML INJ ONE; +PROPOFOL INJ 200 MG/20 ML VIAL IV ONE
[2019-12-22] MEDS ORDERED: METRONIDAZOLE 500 MG/NS RTU 500 MG/100 ML RTUPB IV ONE (11:06)
[2019-12-22] MEDS ORDERED: BACITRACIN ZINC OINTMENT 15 GM ONE (12:49)
[2019-12-22] MEDS ORDERED: BUPIVACAINE HCL 0.5 % INJ/PF 30 ML SDV ONE (12:49)
[2019-12-22] MEDS ORDERED: LIDOCAINE 2% JELLY 30 ML TUBE ONE (12:49)
[2019-12-22] MEDS ORDERED: LIDOCAINE 2% INJ-PF (20 MG/ML) 10 ML AMPUL ONE (12:58)
[2019-12-22] MEDS ORDERED: LIDOCAINE 1% INJ-PF (10 MG/ML) 30 ML SDV ONE (13:48)
[2019-12-22] MEDS ORDERED: KETAMINE HCL INJ 500 MG/10 ML VIAL ONE (13:55)
[2019-12-22] MEDS ORDERED: OXYCODONE-ACETAMINOPHEN 5-325 MG TABLET PO PRN ×2 (13:58)
[2019-12-22] MEDS ORDERED: MEPERIDINE HCL/PF INJ 25 MG/1 ML DISP.SYRIN IV PRN (13:58)
[2019-12-22] MEDS ORDERED: PROMETHAZINE HCL INJ 25 MG/1 ML VIAL IV PRN (13:58)
[2019-12-22] MEDS ORDERED: DIPHENHYDRAMINE HCL 50 MG/ML VIAL IV PRN (13:58)
[2019-12-22] MEDS ORDERED: MORPHINE SULFATE 10 MG/ML INJ IV PRN (13:58)
[2019-12-22] MEDS ORDERED: ONDANSETRON HCL INJ/PF 4 MG/2 ML SDV IV PRN (13:58)
[2019-12-22] MEDS ORDERED: FENTANYL CITRATE INJ/PF 100 MCG/2 ML AMPUL IV PRN ×3 (13:58)
--- NOTE | 2019-12-22 14:48 | Discharge Summary ---
Discharge Summary (SDC) - Discharge Final Diagnosis: small perianal fistula Date of Surgery: 12/22/19 Discharge Date: 12/22/19 Condition: Stable Treatment or Instructions: d/c home. diet: as tolerated. Activity: non-strenuous. F/u 2 weeks. 5% lidocaine ointment to rectum 3 times daily. Warm sits baths twice daily and after bowel movements. Ibuprofen 800 mg p.o. every 8 hours as needed for breakthrough pain. Prescriptions: Hydrocodone/Acetaminophen [[place] 10-325 mg Tablet] 1 tab PO Q6HP PRN #28 tablet PRN Reason: Discharge Diet: As Tolerated Respiratory Treatments at Home: Deep Breathing/Coughing, Incentive Spirometer Discharge Activity: Activity As Tolerated, Balance Activity w/Rest Home Care Assistance: None Needed Report the Following to Your Physician Immediately: Shortness of Breath, Nausea, Vomiting, Increase in Pain, Fever over 101 Degrees, Unusual Bleeding, Redness, Swelling, Warmth
--- NOTE | 2019-12-22 14:52 | Operative Report ---
Nonrecallable Operative Report DATE OF SURGERY: 12/22/19 PREOPERATIVE DIAGNOSIS: Perianal fistula POSTOPERATIVE DIAGNOSIS: Small perianal fistula OPERATION: Perianal fistulectomy SURGEON: JOY ARMSTRONG 1ST CASH PERSON: JUNE STANTON ANESTHESIA: LMAC TISSUE REMOVED OR ALTERED: none COMPLICATIONS: none apparent ESTIMATED BLOOD LOSS: minimal PROCEDURE: Drains/implants: None. Procedure in detail: After informed consent was obtained, the patient was brought to the operating room and laid in the prone jackknife position. The area of the anus and rectum were prepped and draped in a normal sterile fashion. The area of maximal induration was identified. 1% lidocaine mixed with quarter percent Marcaine was injected beneath the indurated area. A small fistulous opening was identified. There was a small, approximately 2 cm fistula tract extending toward the anal canal. It was very superficial. It did not involve the sphincter complex. A lacrimal probe was inserted through the fistula tract. The fistula tract was laid open, and the base was cauterized. A dressing was placed. Once this was completed, the procedure was concluded. All sponge, instrument, and needle counts were correct x2. Condition: Stable. June Stanton PA-C with scrubbed and present the entirety of the procedure. She assisted with all portions of the procedure including identification of the fistula tract, opening of the fistula tract, placement of the dressing.
[2019-12-22 17:26] VITALS: BP 126/77
== END 2019-12-22 15:45 | disposition home or self-care (01) ==
LOC: OROUT 10:51
PROVIDERS: ATTEND Surgery
DX: K60.3 Anal fistula (principal); K58.9 Irritable bowel syndrome, unspecified; Z87.891 Personal history of nicotine dependence; Z79.899 Other long term (current) drug therapy; Z03.818 Encounter for observation for suspected exposure to other biological agents ruled out
CPT/HCPCS: 87635; 46270; J2250; J3490 ×7; J3010; J2270; J7050; J2704; J1741; C9803; 902